=== PATIENT | male | born 1995 | race African-American/Black ===

== ENCOUNTER 2020-01-09 09:52 | Emergency (ER) | payer OTHER, SELFPAY ==
--- NOTE | ~2020-01-09 | XR_ITS ---
EXAMINATION: XR chest 1V portable EXAM DATE: 01/09/2020 10:16 INDICATION: Mid chest pain, some difficulty breathing. Possible COVID 19. TECHNIQUE: Portable AP frontal chest x-ray was obtained. There is no prior study for comparison. FINDINGS: Mild hyperinflation. The lungs are clear. There are no pleural effusions. The cardiomedia stinal silhouette is within normal limits. There is no pneumothorax suspected. The bones and soft t issues are unremarkable. IMPRESSION: Mild hyperinflation. Reviewed, dictated and finalized at location A. IMPRESSION: Mild hyperinflation.
[2020-01-09 09:48] VITALS: TEMP 36.9
[2020-01-09 09:54] VITALS: PULSE 68
--- NOTE | 2020-01-09 10:02 | ECG_ITS ---
Measurements Intervals [place] Rate: 61 P: 87 ND: 132 QRS: 79 QRSD: 94 T: 50 QT: 369 QTc: 374 Interpretive Statements SINUS RHYTHM INCOMPLETE RIGHT BUNDLE BRANCH BLOCK MINIMAL Q WAVES- INF/LAT LEADS BASELINE ARTIFACT- II, III, AVR, AVL, AVF BORDERLINE ECG Electronically Signed On 01-09-2020 11:26:46 CDT by Ernst Small D.O.
[2020-01-09] MEDS: ASPIRIN 81 MG CHEWABLE TABLET 324 MG PO (10:06)
[2020-01-09 10:10] VITALS: BP 140/82; PULSE 68; RESP 15; O2SAT 100
--- NOTE | 2020-01-09 10:18 | ED.CHESTPAIN ---
HPI - Chest Pain General Chief Complaint: Chest Pain Stated Complaint: cp Time Seen by Provider: 01/09/20 10:08 History of Present Illness HPI narrative: Patient has a 24-year-old male who presents complaining chest pain and shortness of breath. He reports generalized weakness dizziness nausea x2 weeks reports being seen in ED 2 days ago by [facility] and tested for COVID. He reports going to [facility] originally for chest pain and shortness of breath. He reports increased pain to chest with cough and deep breathing. Patient has not received results at this time. He reports increased shortness of breath when waking this morning. Reports intermittent cough. Patient has a history of asthma and has been using his inhaler. MD complaint: chest heaviness Related Data Home Medications Medication Instructions Recorded Confirmed albuterol sulfate 1 inh INHALATION QID PRN 01/09/20 Allergies Allergy/AdvReac Type Severity Reaction Status Date / Time No Known Allergies Allergy Verified 01/09/20 09:54 Review of Systems Review of Systems: Narrative: CONSTITUTIONAL: Reports intermittent fever, chills, or sweats. EYES: Denies visual changes, redness, or discharge. ENT: Denies rhinorrhea, congestion, sore throat, or otalgia. CARDIOVASCULAR: Reports chest pain, palpitations, or edema. RESPIRATORY:Reports intermittent cough, reports dyspnea. GASTROINTESTINAL: Denies abdominal pain, vomiting, or diarrhea. Reports nausea GENITOURINARY: Denies dysuria or hematuria. SKIN: Denies rash or itching. MUSCULOSKELETAL: Denies back pain, joint pain, reports generalized myalgia. NEUROLOGIC: Denies headache, numbness, reports intermittent dizziness, or weakness. PSYCHIATRIC: Denies anxiety or depression. [facility] Past Medical History Medical History (Updated 01/09/20 @ 11:41 by ROXANA Rushing) Asthma Social History Social History (Updated 01/09/20 @ 10:24 by ROXANA Rushing) Smoking status: Never smoker Substance use: never Gender identity (if verbalized by the patient): Male Exam Narrative: Exam Narrative: GENERAL: Well-nourished, and in no acute distress. HEAD: Normocephalic, atraumatic. EYES: EOMI. No redness or drainage. Conjunctiva are normal. ENT: Mucous membranes pink and moist. Nares clear. No rhinorrhea. TMs normal bilaterally. Throat normal. Uvula midline. NECK: AROM. Supple. No lymphadenopathy. CHEST: No respiratory distress. Clear to auscultation. O2 100% on RA HEART: Regular rate and rhythm. No murmur appreciated. Normal peripheral pulses. GI: Soft, nontender without rebound, or guarding. No distention. Bowel sounds normal in all quadrants. EXTREMITIES: Normal range of motion. No edema. SKIN: Warm, dry, no rash. NEURO: No focal deficits. Alert and oriented x3. Gait steady. PSYCH: Normal affect. No signs of depression or anxiety. Course Vital Signs Vital signs: Vital Signs Temperature 36.9 C 01/09/20 09:48 Temperature 36.9 C 01/09/20 09:48 Pulse Rate 68 01/09/20 10:10 Respiratory Rate 15 01/09/20 10:10 Blood Pressure 140/82 01/09/20 10:10 Pulse Oximetry 100 01/09/20 10:10 Reviewed. Patient has been instructed to follow-up with his PCP regarding his blood pressure. MDM - Chest Pain MDM Narrative Medical decision making narrative: Patient reports phone call by Callie with positive Covid results. Patient's vss with O2 at 100%. Discussed with patient the course of illness and quarantining. Discussed with patient that if he has increasing sob or chest pain that he is to return to ED for further evaluation. Discussed symptomatic treatment with patient who verbally agrees with understanding. Discussed plan of care with Dr. Zuniga who agrees patient can be discharged and continue to monitor at home. Critical Care Time Critical Care Time Critical Care Time: No Discharge Plan Discharge Clinical Impression: COVID-19, Atypical chest pain Patient Disposition: Home, S
[2020-01-09 10:42] LABS: Basophils Percent Auto 0.3 % (0.2-1.2); Eosinophils Absolute Auto 0.1 K/mm3 (0-0.3); Eosinophils Percent Auto 0.8 % (0-4.4); Hemoglobin 15.3 g/dL (14.0-18.0); Immature Granulocyte Absolute 0.03 K/mm3 (0.00-0.031); Immature Granulocyte Percent A 0.4 % (0-0.5); Lymphocytes Absolute Auto 1.17 K/mm3 (0.9-3.2); Lymphocytes Percent Auto 16.6 % (18.3-44.2); Mean Corpuscular HGB Conc 33.3 g/dl (32-36); Mean Corpuscular Hemoglobin 28.7 pg (26-34); Mean Corpuscular Volume 86.3 fl (80-100); Mean Platelet Volume 11.2 fl (7.4-10.4); Monocytes Absolute Auto 0.3 K/mm3 (0.1-0.6); Monocytes Percent Auto 4.7 % (2.6-8.5); Neutrophils Absolute Auto 5.5 K/mm3 (1.3-6.7); Neutrophils Percent Auto 77.2 % (45.5-73.1); Platelet Count Result 156 k/mm3 (150-375); Red Blood Count 5.33 M/mm3 (4.6-6.20); Red Cell Distribution Width 12.7 % (11.5-14.5); White Blood Count 7.1 K/mm3 (4.5-10.0)
--- NOTE | 2020-01-09 10:46 | PC.NURSE ---
Patient stated Callie just called patient and was told his covid results are positive.
[2020-01-09 10:53] LABS: Anion Gap 12.3 mmol/L (7-16); Blood Urea Nitrogen 12 mg/dL (9-20); Calcium 9.1 mg/dL (8.4-10.2); Carbon Dioxide 27 mmol/L (22-30); Chloride 104 mmol/L (98-107); Estimated CRCL calculation 106 ml/min; Estimated Glomerular Filt Rate > 60; Glucose 96 mg/dL (75-110); Potassium 4.3 mmol/L (3.4-5.0); Sodium 139 mmol/L (137-145)
[2020-01-09 10:54] LABS: INR 1.1; Prothrombin Time 14.2 Seconds (11.1-14.7)
[2020-01-09 11:06] LABS: Troponin I < 0.012 ng/mL (0.000-0.034)
[2020-01-09 11:53] VITALS: BP 130/67; PULSE 64; RESP 16; O2SAT 100
== END 2020-01-09 12:00 | disposition home or self-care (01) ==
PROVIDERS: Emergency Medicine; Emergency Provider Nurse Practitioner
DX: U07.1 COVID-19 (principal); R07.89 Other chest pain; J45.909 Unspecified asthma, uncomplicated
CPT/HCPCS: 36415; 71045; 80048; 84484; 85025; 85610; 85730; 93005; 99284; A9270